=== PATIENT | female | born 1980 | race Caucasian/White ===

== ENCOUNTER 2017-08-08 14:46 | Emergency (ER) | payer MEDICAID, OTHER ==
[2017-08-08 15:32] VITALS: BP 106/78
[2017-08-08] MEDS ORDERED: traMADol TAB* 50 MG PO PRN (16:55)
[2017-08-08] MEDS ORDERED: traMADol TAB* 50 MG PO ONE (16:56)
--- NOTE | 2017-08-08 17:27 | UC ---
Knee Pain HPI - HPI Summary HPI Summary: c/o right knee pain that started without any obvious trigger, she was doing usual activities, states pain is under knee cap and in the inside of knee, sometimes shooting to lateral side of her hip. She states she has been receiving corticoid injections in right knee due to a meniscal tear and ACL tendinitis. States she has mantained same weight. - History of Current Complaint Chief Complaint: UCLowerExtremity Stated Complaint: RIGHT KNEE PAIN Time Seen by Provider: 08/08/17 16:43 Hx Obtained From: Patient Hx Last Menstrual Period: 07/13/17 Onset/Duration: Sudden Onset, Lasting Days Severity Initially: Moderate Severity Currently: Severe Pain Intensity: 7 Character: Sharp Aggravating Factor(s): Movement, Weight Bearing, Prolonged Standing Able to Bear Weight: Yes - Risk Factors Septic Arthritis Risk Factor: Negative Gout Risk Factor: Negative - Allergies/Home Medications Allergies/Adverse Reactions: Allergies Allergy/AdvReac Type Severity Reaction Status Date / Time No Known Allergies Allergy Verified 09/23/15 09:29 Home Medications: Home Medications Aspirin/Acetaminophen/Caffeine [Excedrin Extra Strength Caplet] 1 each PO Q12HR 08/08/17 [History Confirmed 08/08/17] PMH/Surg Hx/FS Hx/Imm Hx Previously Healthy: Yes - Surgical History Surgical History: Yes Surgery Procedure, Year, and Place: x 2. EYE SURGERY - Family History Known Family History: Positive: Hypertension - Social History Alcohol Use: None Substance Use Type: None Smoking Status (MU): Never Smoked Tobacco - Immunization History Most Recent Tetanus Shot: unknown Review of Systems Musculoskeletal: Arthralgia, Myalgia All Other Systems Reviewed And Are Negative: Yes Physical Exam Triage Information Reviewed: Yes Vital Signs: Initial Vital Signs Temp 98 F 08/08/17 15:22 Pulse 99 08/08/17 15:22 Resp 18 08/08/17 15:22 BP 106/78 08/08/17 15:22 Pulse Ox 99 08/08/17 15:22 Vital Signs Reviewed: Yes Eyes: Positive: Conjunctiva Clear ENT: Positive: Hearing grossly normal Neck: Positive: Supple Respiratory: Positive: Chest non-tender Cardiovascular: Positive: Pulses Normal, Brisk Capillary Refill Musculoskeletal Exam: Other - pinpoint tenderness on proximal right tibia on medial aspect eliciting shooting radiation of pain to lateral aspect of right hip Musculoskeletal: Positive: Strength Intact, ROM Intact, No Edema, Other: - valgus/varus test negative, ADT/PDT negative Neurological: Positive: Alert, Muscle Tone Normal Psychological Exam: Normal Knee Pain Course/Dx - Course Course Of Treatment: start tramadol as prescribed, xray of right knee was normal. F/u with orthopedic surgeon, she already has been consulting them due to the same pain - Differential Dx/Diagnosis Provider Diagnoses: Pes anserinus pain syndrome Discharge - Sign-Out/Discharge Documenting (check all that apply): Discharge/Admit/Transfer - Discharge Plan Condition: Stable Disposition: HOME Prescriptions: traMADol TAB* [Ultram*] 50 mg PO Q6HR PRN 3 Days #12 tab MDD 4 PRN Reason: Pain Patient Education Materials: Tendinitis (ED), Tramadol (By mouth) Referrals: Negin Junior PA [Primary Care Provider] - - Billing Disposition and Condition Condition: STABLE Disposition: Home
--- NOTE | 2017-08-08 17:40 | RAD ---
INDICATION: Right knee pain COMPARISON: None TECHNIQUE: 4 view radiograph of the right knee. FINDINGS: The visualized bones are well-corticated and properly aligned. The joint spaces are properly maintained. There is no radiographic evidence of joint effusion. There is no acute fracture, dislocation or other focal bony abnormality. IMPRESSION: Normal knee radiograph as described above. If the patient's symptoms persist, follow-up imaging is recommended.
== END 2017-08-08 18:00 | disposition home or self-care (01) ==
LOC: UCCORT 14:46
DX: M70.51 Other bursitis of knee, right knee (principal); S83.206D Unspecified tear of unspecified meniscus, current injury, right knee, subsequent encounter; M76.891 Other specified enthesopathies of right lower limb, excluding foot; X58.XXXD Exposure to other specified factors, subsequent encounter
CPT/HCPCS: 99212; A9270-GY; G0463

== ENCOUNTER 2018-08-30 15:39 | Emergency (ER) | payer OTHER ==
[2018-08-30 16:51] VITALS: BP 116/73
[2018-08-30] MEDS ORDERED: Albuterol/Ipratropium NEB.SOL* Albuterol 2.5 MG/Ipratropium 0.5 MG 3 ML INH ONE (17:43)
--- NOTE | 2018-08-30 17:45 | UC ---
Respiratory Complaint HPI - HPI Summary HPI Summary: 38 y/o female PMHX of asthma presents to the urgent care c/o sinus congestion, yellowish nasal discharge and productive cough for the past 3 weeks. Pt states she was seen by her PCP 3 weeks ago and Dx w/ asthma exacerbation and Rx Prednisone adn Z-samreen. Symptoms were improving when she finished the treatment since wheezing resolved. However symptoms returned w/ worsening nasal congestion and moderate yellowish PND. Hx of recurrent sinusitis. For the past 2 days a dry cough started. she has been using albuterol inhaler since last night she felt mild wheezing again. Pt denies fever, SOB, chest pain, abdominal pain. N/V/D, dizziness. - History of Current Complaint Chief Complaint: UCRespiratory Stated Complaint: COUGH,CHEST CONGESTION Time Seen by Provider: 08/30/18 17:12 Hx Obtained From: Patient Hx Last Menstrual Period: 08/18/18 Onset/Duration: Gradual Onset, Lasting Weeks - 3 weeks ago, Still Present, Worse Since - 3 days Timing: Intermittent Episodes Severity Initially: Moderate Severity Currently: Moderate Pain Intensity: 7 Pain Scale Used: 0-10 Numeric Character: Cough: Nonproductive Aggravating Factors: Recumbent Position Alleviating Factors: Bronchodilator, OTC Meds Associated Signs And Symptoms: Positive: Wheezing - mild since last night, URI, Nasal Congestion, Sinus Discomfort. Negative: Dyspnea, Fever, Chills, Dizziness Related History: Seasonal Allergies - Risk Factors Pulmonary Embolism Risk Factors: Negative Cardiac Risk Factors: Negative Pseudomonas Risk Factors: Negative Tuberculosis Risk Factors: Negative - Allergies/Home Medications Allergies/Adverse Reactions: Allergies Allergy/AdvReac Type Severity Reaction Status Date / Time amoxicillin Allergy Rash Verified 08/30/18 16:51 Home Medications: Home Medications Adalimumab (NF) [Humira Pen (NF)] 40 mg SUBCUT WEEKLY 08/30/18 [History Confirmed 08/30/18] PMH/Surg Hx/FS Hx/Imm Hx Previously Healthy: Yes Respiratory History: Asthma - Surgical History Surgical History: Yes Surgery Procedure, Year, and Place: x 2. EYE SURGERY INFANT - Family History Known Family History: Positive: Cardiac Disease, Hypertension, Diabetes - Social History Occupation: Employed Full-time Lives: With Family Alcohol Use: None Substance Use Type: None Smoking Status (MU): Never Smoked Tobacco - Immunization History Most Recent Tetanus Shot: unknown Review of Systems All Other Systems Reviewed And Are Negative: Yes Constitutional: Positive: Negative Skin: Positive: Negative Eyes: Positive: Negative ENT: Positive: Nasal Discharge - yellowish, Sinus Congestion, Sinus Pain/ Tenderness, Other - moderate yellowish PND Respiratory: Positive: Cough - dry, Other - mild wheezing Cardiovascular: Positive: Negative Gastrointestinal: Positive: Negative Genitourinary: Positive: Negative Motor: Positive: Negative Neurovascular: Positive: Negative Musculoskeletal: Positive: Negative Neurological: Positive: Negative Psychological: Positive: Negative Is Patient Immunocompromised?: No Physical Exam - Summary Physical Exam Summary: Vitals: reviewed General: Well developed, well-nourished obese female patient with NAD. Head and face: Normocephalic and atraumatic, Positive tenderness over the frontal and maxillary sinuses.. Eyes: PERRLA, EOMI x 2. Normal conjunctiva. No eye discharge. ENT: Ears and TM with normal limits. Nose: edematous and erythematous nasal mucosa with with yellowish discharge and erythematous mucosa. Pharynx with erythema, no exudate. yellowish PND Neck: Supple, no JVD, no carotid bruits and no lymphadenopathy. Lungs: clear, no rales, no rhonchi, Mild wheezing on posterior upper left lung , no rhonchi or crackles or rales B/L CVS: RRR, S1 and S2 present no murmurs or gallops appreciated. Abdomen: soft nontender with positive bowel sounds. Extremities: no edema noted. Neuro: WNL. Skin: warm and dry Triage Information Reviewed: Yes Vital Signs: Initial Vital Signs Temp 98 F 08/30/18 16:47 Pulse 86 08/30/18 16:47 Resp 12 08/30/18 16:47 BP 116/73 08/30/18 16:47 Pulse Ox 100 08/30/18 16:47 Respiratory Course/Dx - Course Course Of Treatment: 38 y/o female PMHX of asthma presents to the urgent care c/o sinus congestion, yellowish nasal discharge and productive cough for the past 3 weeks. Pt states she was seen by her PCP 3 weeks ago and Dx w/ asthma exacerbation and Rx Prednisone adn Z-samreen. Symptoms were improving when she finished the treatment since wheezing resolved. However symptoms returned w/ worsening nasal congestion and moderate yellowish PND. Hx of recurrent sinusitis. For the past 2 days a dry cough started. She has been using albuterol inhaler since last night she felt mild wheezing again. Pt denies fever, SOB, chest pain, abdominal pain. N/V/D, dizziness. Hx obtained. Pt is hemodynamically stable, A&OX3. O2Sat : 100%. Pt w/ acute bacterial sinusitis and mild wheezing in the posterior upper lung on examination.O2Sat:100%. Pt givne Duoneb Tx by the nurse. Pt tolerated well Tx and felt better and lungs improved. Pt with 3 weeks of symptoms getting worse. Pt PCN allergic. Pt Rx Doxycycline PO and Tessalon PO for cough. Advised to continue using Albuterol inhaler at home to alleviate wheezing. . Advised to Return to the clinic or PCP if symptoms do not improve. D/C instructions explained. Pt understood and agreed with plan of care. - Differential Dx/Diagnosis Differential Diagnosis/HQI/PQRI: Asthma, Bronchitis, Exacerbation Of COPD, Lower Resp Infection, Sinusitis, Other - pneumonia Provider Diagnosis: Acute bacterial sinusitis, Wheezing Discharge - Sign-Out/Discharge Documenting (check all that apply): Patient Departure - D/C home All imaging exams completed and their final reports reviewed: No Studies - Discharge Plan Condition: Stable Disposition: HOME Prescriptions: Benzonatate CAP* [Tessalon 100 MG CAP*] 100 mg PO TID #21 cap DOXYcycline CAP(*) [DOXYcycline 100MG CAP(*)] 100 mg PO BID #20 cap Patient Education Materials: Sinusitis (ED), Wheezing (ED) Forms: *Work Release Referrals: Negin Junior PA [Primary Care Provider] - 3 Days Additional Instructions: 1-Please take full course of antibiotic to avoid resistance. Take yogurts w/ probiotics or Culturelle to protect your GI system 2-Take Tessalon PO tabs as directed and use the albuterol inhaler to alleviate cough and mild wheezing. Increase fluid intake, rest and eat well. 3- If symptoms do not improve or worsen or your develop SOB with fever and severe wheezing please go immediately to the ER further evaluation and treatment. 4- F/u with your PCP in 3 days for further management on your Asthma if not improvement of symptoms - Billing Disposition and Condition Condition: STABLE Disposition: Home
== END 2018-08-30 18:18 | disposition home or self-care (01) ==
LOC: UCCORT 15:39
DX: J01.90 Acute sinusitis, unspecified (principal); B96.89 Other specified bacterial agents as the cause of diseases classified elsewhere; R06.2 Wheezing
CPT/HCPCS: 99212; A9270-GY; G0463